=== PATIENT | female | born 1955 | race African-American/Black ===

== ENCOUNTER 2017-03-01 07:55 | Day surgery (SDC) | payer OTHER ==
[2017-02-27 17:31] VITALS: BMI 37.3
--- NOTE | 2017-03-01 09:26 | HP ---
History & Physical Update - History History: No Change - Physical Physical: No Change - Assessment Assessment: No Change - Plan Plan: No Change Currently as noted:: Excision of left leg mass
[2017-03-01] MEDS ORDERED: LIDOCAINE HCL 1%, 10 MG/ML (20ML VIAL) ONE (09:38)
[2017-03-01] MEDS ORDERED: MIDAZOLAM HCL 2 MG/2 ML SINGLE DOSE VIAL ONE ×2 (09:53)
[2017-03-01] MEDS ORDERED: ceFAZolin SODIUM 1 GM VIAL ONE (09:57)
[2017-03-01] MEDS ORDERED: LIDOCAINE HCL 1%, 10 MG/ML (20ML VIAL) IJ ONE (10:00)
[2017-03-01 10:47] VITALS: TEMP 97.6
[2017-03-01] MEDS ORDERED: ONDANSETRON 4 MG/2 ML VIAL IVPUSH PRN (10:52)
[2017-03-01] MEDS ORDERED: oxyCODONE HCL 5 MG TABLET PO PRN (10:52)
[2017-03-01] MEDS ORDERED: PROMETHAZINE HCL 25 MG/1 ML VIAL IVPUSH PRN (10:52)
--- NOTE | 2017-03-01 11:34 | OP ---
Operative Note - Note: Operative Date: 03/01/17 Pre-Operative Diagnosis: Left thigh mass Operation: Excision of left thigh mass Findings: 3cm x 3cm mass Post-Operative Diagnosis: Same as Pre-op Surgeon: Tapan Dale Blacktop Paver Operator: Dio Ventura Anesthesia: Local, MAC Specimens Removed: Left thigh mass Estimated Blood Loss (mls): 0 Operative Report Dictated: Yes
[2017-03-01 11:49] VITALS: BP 130/64; PULSE 58
--- NOTE | 2017-03-02 15:21 | PATH ---
Surgical Pathology Report Patient Name: LORE [facility]. Rec. #: [id number] /Age/Gender: 1955 (Age: 61) / F Account: [id number] Location: AMBULATORY SURG Taken: 03/01/2017 Received: 03/01/2017 Reported: 03/02/2017 Physicians: Tapan Dale M.D. Specimen(s) Received MASS, LEFT THIGH Clinical History Left thigh mass Final Diagnosis SKIN AND SOFT TISSUE, LEFT THIGH, MASS, EXCISION: BENIGN HEMANGIOMA, MIXED SINUSOIDAL AND PAPILLARY TYPES (1.8 CM). Electronically Signed Stephen Patel M.D. Gross Description Received in formalin labelled "mass left thigh" is 2.7 x 1.6 cm ellipse of skin with a 1.8 x 1.4 x 1.4 cm soft papule. The margin is inked. Cut surface reveals a focally hemorrhagic bulging todd interior. Cross sections are submitted in cassettes 1 and 2. The apices are sectioned and submitted in cassettes 3 and 4. The specimen is totally submitted. [facility]/03/01/2017 [facility]/03/01/2017
--- NOTE | 2017-03-03 08:13 | OP ---
DATE OF OPERATION: 03/01/2017 SURGEON: Reva Dale MD WEB CONTENT MANAGER: EZEQUIEL Dee PREOPERATIVE DIAGNOSIS: Left thigh mass. POSTOPERATIVE DIAGNOSIS: Left thigh mass. PROCEDURE: Excision of left thigh mass. FINDINGS: Exophytic left thigh mass 3 cm x 3 cm. ESTIMATED BLOOD LOSS: 0 mL. ANESTHESIA: MAC/local. REASON FOR PROCEDURE: This 61-year-old female presents to the office for left thigh mass. Because of this, she was consented for excision of her left thigh mass. The risks and benefits of the procedure were explained. These included bleeding, infection, injury to surrounding structures, and recurrent TX, DVT, and PE as some of the complications. She understood and signed informed consent. DESCRIPTION OF PROCEDURE: The patient was placed supine on the operating room table. She underwent MAC by Anesthesia. The area was prepped and draped in the usual sterile fashion. Time-out was performed. An elliptical incision was made after local lidocaine was injected. The entirety of the mass was excised. This was sent off the field. Hemostasis was achieved with electrocautery. The deep dermal tissue was closed using multiple 3-0 Vicryl sutures, and the skin was closed using 4-0 Biosyn. Sterile dressings were applied. The patient tolerated the procedure well and was transferred to the recovery room in stable condition. REVA DALE M.D. MARIELY/[id number]
== END 2017-03-01 11:40 | disposition home or self-care (01) ==
LOC: JASUSAT 07:55 → MERGE 15:07
PROVIDERS: ATTEND Surgery
PROC: 0JBM0ZZ Excision of Left Upper Leg Subcutaneous Tissue and Fascia, Open Approach (ICD-10-PCS; principal; 2017-03-01 09:30)
DX: D21.22 Benign neoplasm of connective and other soft tissue of left lower limb, including hip (principal)
CPT/HCPCS: 88305-TC

== ENCOUNTER 2021-05-30 16:00 | Inpatient (IN) | payer OTHER ==
[2021-05-23 17:05] VITALS: BMI 34.2
[2021-06-13] MEDS ORDERED: LACTATED RINGERS SOLUTION 1,000 ML IV SCH (07:30)
[2021-06-13] MEDS ORDERED: MAG HYDROX/AL HYDROX/SIMETH 30 ML UNIT-DOSE CUP PO PRN (07:30)
[2021-06-13] MEDS ORDERED: ONDANSETRON 4 MG/2 ML VIAL IVPUSH PRN (07:30)
[2021-06-13] MEDS ORDERED: VANCOMYCIN 1,000 MG VIAL (RESTRICTED TO ID ONLY) ONE (10:21)
[2021-06-13] MEDS ORDERED: BUPIVACAINE HCL/PF 0.5% (5MG/ML) 10 ML VIAL ONE (11:03)
[2021-06-13] MEDS ORDERED: BUPIVACAINE LIPOSOME/PF (EXPAREL) 266 MG/20 ML VIAL ONE (11:03)
[2021-06-13] MEDS ORDERED: MIDAZOLAM HCL 2 MG/2 ML SINGLE DOSE VIAL ONE ×3 (11:03→13:33)
[2021-06-13] MEDS ORDERED: SODIUM CHLORIDE 0.9% P/F 10 ML VIAL IJ ONE (11:03)
[2021-06-13] MEDS ORDERED: BUPIVACAINE HCL 50 ML ONE (11:28)
[2021-06-13] MEDS ORDERED: PROPOFOL 20 ML ONE ×2 (11:29)
[2021-06-13] MEDS ORDERED: DEXAMETHASONE SOD PHOSPHATE 4 MG/1 ML VIAL ONE (11:41)
[2021-06-13] MEDS ORDERED: ceFAZolin SODIUM 1 GM VIAL ONE ×2 (11:41→16:52)
[2021-06-13] MEDS ORDERED: ONDANSETRON 4 MG/2 ML VIAL ONE (11:41)
[2021-06-13] MEDS ORDERED: TRANEXAMIC ACID 1000 MG/10 ML VIAL ONE ×2 (11:41→13:07)
[2021-06-13] MEDS ORDERED: PHENYLEPHRINE HCL 10 MG/1 ML SINGLE DOSE VIAL ONE (11:43)
[2021-06-13] MEDS ORDERED: BUPIVICAINE 0.25%/MORPH PF/KETOROLAC - 51ML DISP.SYRINGE IA ONE ×3 (12:15→13:33)
[2021-06-13] MEDS ORDERED: oxyCODONE HCL 5 MG TABLET PO PRN (14:34)
[2021-06-13] MEDS: ACETAMINOPHEN 1000 MG/100 ML VIAL IVPB SCH ×2 (14:38→20:03)
[2021-06-13] MEDS ORDERED: ACETAMINOPHEN INJECTION 100 ML IVPB ONE (14:42)
[2021-06-13] MEDS: SENNOSIDES/DOCUSATE COMBO (SENNA PLUS) TABLET (UD) PO SCH ×2 (15:24→21:33)
[2021-06-13] MEDS: GABAPENTIN 300 MG CAPSULE PO SCH ×2 (15:24→21:34)
[2021-06-13] MEDS: MULTIVITAMINS (DAILY MVI) TABLET (FP) PO SCH (15:24)
[2021-06-13] MEDS: PANTOPRAZOLE 40 MG TABLET PO SCH (15:24)
[2021-06-13] MEDS ORDERED: DEXTROSE 5%-WATER - 50 ML IVPB ONE (16:52)
[2021-06-13] MEDS: CEFAZOLIN 2 GM in DEXTROSE 5%-WATER - 50 ML IVPB SCH (17:26)
[2021-06-13] MEDS: oxyCODONE HCL 5 MG TABLET PO PRN (17:27)
[2021-06-13] MEDS: oxyCODONE HCL 10 MG SUSTAINED ACTING TABLET PO SCH (21:34)
[2021-06-14] MEDS ORDERED: DEXTROSE 5%-WATER - 50 ML IVPB ONE ×2 (01:23→09:41)
[2021-06-14] MEDS ORDERED: ceFAZolin SODIUM 1 GM VIAL ONE ×2 (01:23→09:41)
[2021-06-14] MEDS: CEFAZOLIN 2 GM in DEXTROSE 5%-WATER - 50 ML IVPB SCH ×2 (01:26→10:31)
[2021-06-14] MEDS: ACETAMINOPHEN 1000 MG/100 ML VIAL IVPB SCH ×2 (02:37→09:30)
[2021-06-14] MEDS: metFORMIN HCL 500 MG TABLET (FP) PO SCH (07:37)
[2021-06-14] MEDS: oxyCODONE HCL 5 MG TABLET PO PRN ×3 (07:38→21:51)
[2021-06-14 08:09] LABS: HEMATOCRIT 28.4 % (32.4-45.2); HEMOGLOBIN 8.7 GM/dl (10.7-15.3); MCH 23.5 pg (25.7-33.7); MCHC 30.8 g/dl (32.0-36.0); MEAN CELL VOLUME 76.5 fl (80-96); MEAN PLT VOLUME 7.4 fl (7.5-11.1); PLATELET COUNT 347 10^3/uL (134-434); RBC 3.72 M/mm3 (3.60-5.2); RDW 13.5 % (11.6-15.6); WHITE BLOOD COUNT 10.5 K/mm3 (4.0-10.8)
[2021-06-14 08:43] LABS: CALCIUM 9.4 mg/dl (8.5-10); CREATININE 0.8 mg/dl (0.55-1.3)
[2021-06-14] MEDS ORDERED: PATIENT'S OWN MEDICATION (NON-FORMULARY) (Amlodipine Besylate/Benazepril [Amlodipine-Benaz PO SCH (10:00)
[2021-06-14] MEDS: PANTOPRAZOLE 40 MG TABLET PO SCH (10:32)
[2021-06-14] MEDS: oxyCODONE HCL 10 MG SUSTAINED ACTING TABLET PO SCH ×2 (10:32→21:50)
[2021-06-14] MEDS: LISINOPRIL 20 MG TABLET PO SCH (10:33)
[2021-06-14] MEDS: ENOXAPARIN NA (PORCINE) 30 MG/0.3 ML DISP.SYRIN SQ SCH ×2 (10:33→21:50)
[2021-06-14] MEDS: SENNOSIDES/DOCUSATE COMBO (SENNA PLUS) TABLET (UD) PO SCH ×2 (10:34→21:50)
[2021-06-14] MEDS: amLODIPine BESYLATE 5 MG TABLET (FP) PO SCH (10:34)
[2021-06-14] MEDS: MULTIVITAMINS (DAILY MVI) TABLET (FP) PO SCH (10:34)
[2021-06-14] MEDS: GABAPENTIN 300 MG CAPSULE PO SCH ×2 (10:35→21:51)
[2021-06-14] MEDS: INSULIN SLIDING SCALE (NOVOLOG) 1 VIAL SQ SCH ×3 (11:26→21:58)
[2021-06-14] MEDS ORDERED: ATORVASTATIN CA 20 MG TABLET (FP) PO SCH (22:00)
[2021-06-15] MEDS: oxyCODONE HCL 5 MG TABLET PO PRN ×2 (05:45→10:37)
[2021-06-15] MEDS: metFORMIN HCL 500 MG TABLET (FP) PO SCH (06:11)
[2021-06-15] MEDS: INSULIN SLIDING SCALE (NOVOLOG) 1 VIAL SQ SCH ×2 (06:12→11:47)
[2021-06-15 06:20] VITALS: BP 119/56; PULSE 84; TEMP 99.7
[2021-06-15 08:34] LABS: HEMATOCRIT 26.1 % (32.4-45.2); HEMOGLOBIN 8.8 GM/dl (10.7-15.3); MCH 25.8 pg (25.7-33.7); MCHC 33.7 g/dl (32.0-36.0); MEAN CELL VOLUME 76.5 fl (80-96); MEAN PLT VOLUME 7.9 fl (7.5-11.1); PLATELET COUNT 325 10^3/uL (134-434); RBC 3.42 M/mm3 (3.60-5.2); RDW 13.3 % (11.6-15.6); WHITE BLOOD COUNT 10.5 K/mm3 (4.0-10.8)
[2021-06-15] MEDS: SENNOSIDES/DOCUSATE COMBO (SENNA PLUS) TABLET (UD) PO SCH (10:35)
[2021-06-15] MEDS: GABAPENTIN 300 MG CAPSULE PO SCH (10:35)
[2021-06-15] MEDS: amLODIPine BESYLATE 5 MG TABLET (FP) PO SCH (10:35)
[2021-06-15] MEDS: PANTOPRAZOLE 40 MG TABLET PO SCH (10:36)
[2021-06-15] MEDS: MULTIVITAMINS (DAILY MVI) TABLET (FP) PO SCH (10:36)
[2021-06-15] MEDS: oxyCODONE HCL 10 MG SUSTAINED ACTING TABLET PO SCH (10:36)
[2021-06-15] MEDS: LISINOPRIL 20 MG TABLET PO SCH (10:36)
[2021-06-15] MEDS: ENOXAPARIN NA (PORCINE) 30 MG/0.3 ML DISP.SYRIN SQ SCH (10:38)
== END 2021-06-15 13:00 | disposition home or self-care (01) | DRG 470 ==
LOC: FM/S 06-13 06:57
PROVIDERS: ADMIT Orthopaedic Surgery Sports Medicine; ATTEND Nurse Practitioner Acute Care
PROC: 8E0Y0CZ Robotic Assisted Procedure of Lower Extremity, Open Approach (ICD-10-PCS; 2021-06-13)
PROC: 0SRC0JZ Replacement of Right Knee Joint with Synthetic Substitute, Open Approach (ICD-10-PCS; principal; 2021-06-13 12:01)
DX: M17.11 Unilateral primary osteoarthritis, right knee (principal); E11.9 Type 2 diabetes mellitus without complications; I10 Essential (primary) hypertension; D57.1 Sickle-cell disease without crisis
CPT/HCPCS: 36415; 73560-TC-RT-FY; 80048; 82962; 85027; 88305-TC; 88311-TC; 94760; 97010-GP; 97116-GP; J0131